=== PATIENT | female | born 1990 | race Caucasian/White ===

== ENCOUNTER 2023-03-20 07:21 | Emergency (ER) | payer SELFPAY ==
[~2023-03-20] VITALS: Ht 167.6 cm; Wt 68.0 kg
[2023-03-20 07:29] VITALS: BP 134/88; PULSE 73; RESP 20; TEMP 98; O2SAT 99
[2023-03-20] MEDS ORDERED: NACL 0.9% 2,000 ML IV ONE (07:45)
[2023-03-20] MEDS ORDERED: HALOPERIDOL IM 5 MG/ML VIAL IVP ONE (07:45)
[2023-03-20] MEDS ORDERED: LORazepam 2 MG/ML VIAL IVP ONE (07:45)
[2023-03-20] MEDS ORDERED: diphenhydrAMINE 50 MG/ML VIAL IVP ONE (07:45)
[2023-03-20] MEDS ORDERED: KETOROLAC 15 MG/ML VIAL IVP ONE (07:50)
[2023-03-20 08:26] LABS: BASOPHILS % (AUTO) 0.4 % (0.0-2.0); EOSINOPHILS # (AUTO) 0.1 K/uL (0-0.4); EOSINOPHILS % (AUTO) 0.8 % (0.0-4.0); HEMOGLOBIN 13.8 g/dL (12.0-16.0); LYMPHOCYTES # (AUTO) 1.4 K/uL (2.5-16.5); LYMPHOCYTES % (AUTO) 12.6 % (20.5-51.1); MEAN CORPUSCULAR HEMOGLOBIN 30 pg (27-31); MEAN CORPUSCULAR HGB CONC 34 g/dL (33-37); MONOCYTES # (AUTO) 0.6 K/uL (0.8-1.0); MONOCYTES % (AUTO) 5.4 % (1.7-9.3); NEUTROPHILS % (AUTO) 80.8 % (42.2-75.2); PLATELET COUNT (AUTO) 332 K/uL (140-450); RED BLOOD CELL COUNT(AUTO) 4.56 MIL/uL (4.20-5.40); RED CELL DISTRIBUTION WIDTH 14.1 % (11.6-13.7); WHITE BLOOD COUNT (AUTO) 11.1 K/uL (4.8-10.8)
[2023-03-20] MEDS ORDERED: HALOPERIDOL IM 5 MG/ML VIAL IM ONE (08:40)
[2023-03-20 08:48] LABS: ALANINE AMINOTRANSFERASE 16 U/L (12-78); ALBUMIN 4.3 g/dL (3.4-5.0); ALKALINE PHOSPHATASE 66 U/L (50-136); ANION GAP 17.2 (8-16); ASPARTATE AMINOTRANSFERASE 31 U/L (15-37); CALCIUM 9.5 mg/dL (8.5-10.1); CARBON DIOXIDE 21.2 mmol/L (21-32); CHLORIDE 105 mmol/L (98-107); CREATININE 0.7 mg/dL (0.6-1.3); GFR ARICAN-AMERICAN 123 mL/min (>90); GFR NON ARICAN-AMERICAN 102 mL/min (>90); GLUCOSE 129 mg/dL (74-106); LIPASE 43 U/L (73-393); MAGNESIUM 1.9 mg/dL (1.8-2.4); POTASSIUM 4.4 mmol/L (3.5-5.1); SODIUM SERUM 139 mmol/L (136-145); TOTAL BILIRUBIN 0.7 mg/dL (0.0-1.0); TOTAL PROTEIN, SERUM 8.4 g/dL (6.4-8.2); UREA NITROGEN, BLOOD 17 mg/dL (7-18)
[2023-03-20 09:04] LABS: APPEARANCE,URINE CLEAR (CLEAR); BILIRUBIN,URINE 1+ (NEGATIVE); BLOOD, URINE 1+ (NEGATIVE); COLOR,URINE YELLOW (YELLOW); LEUKOCYTE ESTERASE ,URINE NEGATIVE (NEGATIVE); NITRITE, URINE NEGATIVE (NEGATIVE); PROTEIN,URINE 1+ (NEGATIVE); UGLUCOSE NEGATIVE (NEGATIVE); UROBILINOGEN,URINE 0.2 EU/dL (0.2 - 1)
[2023-03-20 09:17] LABS: BACTERIA,URINE 1+ /HPF (None Seen); ICTOTEST NEGATIVE (NEGATIVE); RBC,URINE 0-5 /HPF (0-5); SQUAMOUS EPITHELIAL CELL,UR 80-100 /LPF (0-3 (FEW)); WBC,URINE 0-5 /HPF (0-5)
[2023-03-20] MEDS ORDERED: SODIUM PHOS / POTASSIUM PHOS 1 PKT PDR PO ONE (09:20)
[2023-03-20] MEDS ORDERED: ONDANSETRON 4 MG/2 ML VIAL IVP ONE (10:25)
[2023-03-20] MEDS ORDERED: PROCHLORPERAZINE 10 MG/2 ML VIAL IVP ONE (11:30)
[2023-03-20] MEDS ORDERED: METO-485 PO (13:00)
[2023-03-20 13:37] VITALS: BP 128/58; PULSE 65; RESP 18; O2SAT 98
== END 2023-03-20 13:38 | disposition home or self-care (01) ==
LOC: MED 07:21
DX: O21.8 Other vomiting complicating pregnancy (principal); O26.891 Other specified pregnancy related conditions, first trimester; R10.13 Epigastric pain; I10 Essential (primary) hypertension; F12.90 Cannabis use, unspecified, uncomplicated; Z88.0 Allergy status to penicillin; Z79.899 Other long term (current) drug therapy
CPT/HCPCS: 36415; 76817; 80053; 81001; 83690; 83735; 84100; 84484; 84702; 85025; 93005; 96361; 96372; 96374; 96375; 99285; J0780; J1200; J1630; J1885; J2060; J2405; J7030; Q0092; 81002

== ENCOUNTER 2023-03-21 23:50 | Emergency (ER) | payer SELFPAY ==
[~2023-03-21] VITALS: Ht 167.6 cm; Wt 68.9 kg
[~2023-03-21 23:50] MED LIST: METO-485 PO
[2023-03-22 00:10] VITALS: BP 149/77; PULSE 77; RESP 16; TEMP 98.3; O2SAT 96
--- NOTE | 2023-03-22 00:13 | NUR ---
TO [facility]
--- NOTE | 2023-03-22 02:03 | NUR ---
PT AMBULATES TO BED 8
[2023-03-22] MEDS ORDERED: METOCLOPRAMIDE 10 MG/2 ML INJ VIAL IVP ONE (02:05)
[2023-03-22] MEDS ORDERED: ONDANSETRON 4 MG/2 ML VIAL IVP ONE ×2 (02:05→03:05)
[2023-03-22 02:27] VITALS: BP 152/95; PULSE 68; RESP 13; O2SAT 100
[2023-03-22 02:27] LABS: BASOPHILS % (AUTO) 0.3 % (0.0-2.0); EOSINOPHILS % (AUTO) 0.2 % (0.0-4.0); HEMOGLOBIN 14.1 g/dL (12.0-16.0); LYMPHOCYTES # (AUTO) 1.4 K/uL (2.5-16.5); LYMPHOCYTES % (AUTO) 9.6 % (20.5-51.1); MEAN CORPUSCULAR HEMOGLOBIN 31 pg (27-31); MEAN CORPUSCULAR HGB CONC 34 g/dL (33-37); MEAN CORPUSCULAR VOLUME 88.8 fL (80-94); MONOCYTES # (AUTO) 0.9 K/uL (0.8-1.0); MONOCYTES % (AUTO) 6.5 % (1.7-9.3); NEUTROPHILS # (AUTO) 11.7 K/uL (1.8-7.7); NEUTROPHILS % (AUTO) 83.4 % (42.2-75.2); PLATELET COUNT (AUTO) 389 K/uL (140-450); RED BLOOD CELL COUNT(AUTO) 4.62 MIL/uL (4.20-5.40); RED CELL DISTRIBUTION WIDTH 13.9 % (11.6-13.7)
[2023-03-22 02:29] LABS: APPEARANCE,URINE CLEAR (CLEAR); BILIRUBIN,URINE 1+ (NEGATIVE); BLOOD, URINE 2+ (NEGATIVE); COLOR,URINE YELLOW (YELLOW); LEUKOCYTE ESTERASE ,URINE NEGATIVE (NEGATIVE); NITRITE, URINE NEGATIVE (NEGATIVE); UGLUCOSE NEGATIVE (NEGATIVE)
[2023-03-22 02:34] LABS: RBC,URINE 0-5 /HPF (0-5)
--- NOTE | 2023-03-22 02:39 | NUR ---
33 YO F BIB SELF C/O N/V X 1 DAY AND CHEST PAIN STARTING THIS AFTERNOON. PT STATES SHE FOUND OUT SHE WAS YESTERDAY AND HAS HAD NAUSEA/VOMITING EVER SINCE. PT STATES HX CARDIAC ARREST X 1 MONTH AGO. CP 02/20 DESCRIBING IT "PRESSURE". 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 CALL LIGHT WITHIN REACH. ALLERGIES: PENICILLINS, BENADRYL, MORPHINE PMHX: HTN
[2023-03-22 02:40] LABS: ALBUMIN 4.3 g/dL (3.4-5.0); CREATININE 0.6 mg/dL (0.6-1.3); TOTAL BILIRUBIN 0.9 mg/dL (0.0-1.0)
--- NOTE | 2023-03-22 02:48 | NUR ---
IV MEDICATION VERIFIED AND GIVEN BY MYSELF. CHARTED UNDER ORAL SURGEON NAME.
[2023-03-22] MEDS ORDERED: NITROFURANTOIN 100 MG CAP PO SCH (02:55)
[2023-03-22] MEDS ORDERED: PROCHLORPERAZINE 10 MG/2 ML VIAL IVP ONE (03:05)
[2023-03-22] MEDS ORDERED: ONDA-188 SL (04:49)
[2023-03-22] MEDS ORDERED: DOXY1TCP PO (04:49)
[2023-03-22] MEDS ORDERED: PROC-87 PO (04:49)
[2023-03-22] MEDS ORDERED: NITR100C7 PO (04:49)
--- NOTE | 2023-03-22 04:50 | NUR ---
PT LYING IN BED WITH NO S/S PAIN OR DISTRESS. PT STATES PAIN LEVEL 0/10. CALL LIGHT WITHIN REACH.
--- NOTE | 2023-03-22 05:47 | NUR ---
Patient discharged with v/s stable. Written and verbal after care instructions given and explained. Patient verbalized understanding. Ambulatory with steady gait. All questions addressed prior to discharge. Advised to follow up with PMD.
== END 2023-03-22 05:47 | disposition home or self-care (01) ==
LOC: MED 23:50
DX: O23.41 Unspecified infection of urinary tract in pregnancy, first trimester (principal); O26.891 Other specified pregnancy related conditions, first trimester; R11.2 Nausea with vomiting, unspecified; Z3A.01 Less than 8 weeks gestation of pregnancy; Z79.899 Other long term (current) drug therapy; Z88.0 Allergy status to penicillin; Z88.5 Allergy status to narcotic agent; Z88.8 Allergy status to other drugs, medicaments and biological substances
CPT/HCPCS: 36415; 80053; 81001; 81025; 85025; 87086; 96374; 96375; 96376; 99284; J0780; J2405; J2765

== ENCOUNTER 2023-03-23 05:54 | Emergency (ER) | payer SELFPAY ==
[~2023-03-23] VITALS: Ht 167.6 cm; Wt 68.9 kg
[~2023-03-23 05:54] MED LIST changes: +DOXY1TCP PO; +NITR100C7 PO; +ONDA-188 SL; +PROC-87 PO
[2023-03-23 06:00] VITALS: BP 134/92; PULSE 95; RESP 17; TEMP 98.1; O2SAT 97
--- NOTE | 2023-03-23 06:00 | NUR ---
TO [facility]
--- NOTE | 2023-03-23 06:19 | NUR ---
Dr. Dickson examining patient.
--- NOTE | 2023-03-23 06:22 | NUR ---
Patient received on bed lying and awake. Alert and oriented x4. No acute distress. No complaints of pain or discomfort. Respirations even and unlabored. Call light within reach.
--- NOTE | 2023-03-23 07:19 | NUR ---
Ultrasound at bedside.
[2023-03-23 07:21] LABS: BASOPHILS # (AUTO) 0.1 K/uL (0.00-0.22); BASOPHILS % (AUTO) 0.4 % (0.0-2.0); EOSINOPHILS % (AUTO) 0.3 % (0.0-4.0); HEMATOCRIT 47.8 % (36-48); HEMOGLOBIN 16.2 g/dL (12.0-16.0); LYMPHOCYTES # (AUTO) 2.2 K/uL (2.5-16.5); LYMPHOCYTES % (AUTO) 13.5 % (20.5-51.1); MEAN CORPUSCULAR HEMOGLOBIN 30 pg (27-31); MEAN CORPUSCULAR HGB CONC 34 g/dL (33-37); MEAN CORPUSCULAR VOLUME 89.2 fL (80-94); MONOCYTES # (AUTO) 1.3 K/uL (0.8-1.0); MONOCYTES % (AUTO) 7.8 % (1.7-9.3); NEUTROPHILS # (AUTO) 12.9 K/uL (1.8-7.7); PLATELET COUNT (AUTO) 381 K/uL (140-450); RED BLOOD CELL COUNT(AUTO) 5.36 MIL/uL (4.20-5.40); RED CELL DISTRIBUTION WIDTH 13.8 % (11.6-13.7); WHITE BLOOD COUNT (AUTO) 16.5 K/uL (4.8-10.8)
[2023-03-23 07:35] LABS: ALBUMIN 4.4 g/dL (3.4-5.0); CARBON DIOXIDE 26.1 mmol/L (21-32); CREATININE 0.8 mg/dL (0.6-1.3); POTASSIUM 3.1 mmol/L (3.5-5.1); TOTAL BILIRUBIN 0.8 mg/dL (0.0-1.0)
--- NOTE | 2023-03-23 10:00 | NUR ---
1st contact with pt. in bed 2, pt. with no acute distress. NO active vomiting now. Pt. waiting for MD montilla. Will cont. to monitor.
[2023-03-23] MEDS: ONDANSETRON 4 MG/2 ML VIAL IM ONE (10:19)
[2023-03-23] MEDS: POTASSIUM CHLORIDE 10 MEQ TABER PO ONE (10:19)
--- NOTE | 2023-03-23 10:19 | NUR ---
Pt. c/o nausea and NO vomiting. Pt. requested medication, MD made aware and orders received. Pt. medicated as ordered and will follow up for effectiveness. Will cont. to monitor.
--- NOTE | 2023-03-23 11:00 | NUR ---
Pt. states feeling jordi and with less nausea. Pt. asked and given cracker and cramberrie juice. No active vomiting and no c/o nausea.
--- NOTE | 2023-03-23 11:20 | NUR ---
Pt. medicated with RhoGAM IM to left buttocks per MD order after picking up from lab LOT No. [id number] Exp. 07-13-2024. Pt. tolerated with no diff. or distress. Pt. instructed to use warm packs for discomfort later and to rest. Pt. verbalized understanding and states that she will follow instructions.
[2023-03-23 11:36] VITALS: BP 125/75; PULSE 78; RESP 16; TEMP 98.7; O2SAT 98
--- NOTE | 2023-03-23 11:36 | NUR ---
Pt. with steady gait. No acute distress. No C/O pain now. Awake and alert. Stable for D/C home. Pt. given copies of all lab work and MAKENZIE done in ER. Pt. verbalized understaning. States "stable to go home.". Pt. stable for d/c home.
== END 2023-03-23 11:36 | disposition home or self-care (01) ==
LOC: MED 05:54
DX: O20.0 Threatened abortion (principal); O16.1 Unspecified maternal hypertension, first trimester; Z3A.01 Less than 8 weeks gestation of pregnancy; Z79.899 Other long term (current) drug therapy; Z88.0 Allergy status to penicillin; Z88.8 Allergy status to other drugs, medicaments and biological substances; Z88.5 Allergy status to narcotic agent
CPT/HCPCS: 36415; 76817; 80053; 81025; 84702; 85025; 86850; 86886; 86900; 86901; 96372; 99285; J2405; J2790; Q0092